=== PATIENT | female | born 1975 | race African-American/Black ===

== ENCOUNTER → 2024-03-28 | Outpatient (REF) | LOC: M LAB 13:40 | PROVIDERS: ATTEND Family Medicine | DX: Z01.89 Encounter for other specified special examinations (principal) ==

== ENCOUNTER 2024-06-27 22:10 | Emergency (ER) | payer BC ==
[~2024-06-27] VITALS: Ht 165.1 cm; Wt 100.8 kg
[2024-06-27 22:17] VITALS: BP 112/72; TEMP 99.1; O2SAT 97
== END 2024-06-28 01:52 | disposition left against medical advice (07) ==
LOC: M ED 22:10
DX: Z53.21 Procedure and treatment not carried out due to patient leaving prior to being seen by health care provider (principal)

== ENCOUNTER 2025-02-08 05:58 | Emergency (ER) | payer BC ==
[~2025-02-08] VITALS: Ht 162.6 cm; Wt 106.6 kg
[2025-02-08] MEDS: ACETAMINOPHEN 500 MG TAB PO ONE (06:44)
[2025-02-08 06:56] LABS: BASO % 0.6 % (0.0-1.0); EOS # 0.1 10^3/uL (0.0-0.5); EOS % 1.8 % (0.0-3.0); HEMATOCRIT 39.9 % (36.0-47.0); HEMOGLOBIN 13.5 g/dl (12.0-15.5); LYMPH # 4.2 10^3/uL (1.5-5.0); LYMPH % 58.3 % (24.0-44.0); MEAN CORPUSCULAR HEMOGLOBIN 30.5 pg (27.0-33.0); MEAN CORPUSCULAR HGB CONC 33.8 g/dl (32.0-36.5); MEAN CORPUSCULAR VOLUME 90.1 fl (80.0-96.0); MONO # 0.7 10^3/uL (0.0-0.8); MONO % 9.5 % (2.0-8.0); NEUTROPHILS # 2.1 10^3/uL (1.5-8.5); NEUTROPHILS % 29.7 % (36.0-66.0); PLATELET COUNT, AUTOMATED 375 10^3/uL (150-450); RED BLOOD COUNT 4.43 10^6/uL (4.00-5.40); WHITE BLOOD COUNT 7.2 10^3/uL (4.0-10.0)
[2025-02-08 07:18] LABS: BLOOD UREA NITROGEN 13 MG/DL (9-23); CALCIUM LEVEL 8.3 MG/DL (8.5-10.1); CARBON DIOXIDE LEVEL 24 MMOL/L (20-31); CHLORIDE LEVEL 106 MMOL/L (98-107); CREATININE FOR GFR 0.69 MG/DL (0.55-1.30); GLOMERULAR FILTRATION RATE > 90.0 (>51); GLUCOSE, FASTING 109 MG/DL (60-100); MAGNESIUM LEVEL 1.9 MG/DL (1.8-2.4); POTASSIUM SERUM 3.8 MMOL/L (3.5-5.1); SODIUM LEVEL 139 MMOL/L (136-145)
[2025-02-08 07:21] LABS: FREE T4 1.21 NG/DL (0.89-1.76); THYROID STIMULATING HORMONE 5.47 uIU/ML (0.55-4.78)
[2025-02-08 08:13] VITALS: BP 132/67; TEMP 98.2; O2SAT 97
[2025-02-08] MEDS ORDERED: HOLTER MONITOR XX (08:24)
[2025-02-08] MEDS ORDERED: METH-1164 PO (08:24)
[2025-02-08] MEDS: methocarbamoL 500 MG TAB PO ONE (08:43)
== END 2025-02-08 08:58 | disposition home or self-care (01) ==
LOC: M ED 05:58
DX: R00.2 Palpitations (principal); M47.816 Spondylosis without myelopathy or radiculopathy, lumbar region; R94.6 Abnormal results of thyroid function studies; Z79.899 Other long term (current) drug therapy

== ENCOUNTER → 2025-03-07 | Outpatient (CLI) | payer BC ==
[~2025-03-07] MED LIST: HOLTER MONITOR XX; METH-1164 PO
[2025-03-07 10:18] LABS: BASO # 0.1 10^3/uL (0.0-0.2); BASO % 0.9 % (0.0-1.0); EOS # 0.1 10^3/uL (0.0-0.5); EOS % 1.4 % (0.0-3.0); LYMPH # 4.0 10^3/uL (1.5-5.0); LYMPH % 57.5 % (24.0-44.0); MONO # 0.7 10^3/uL (0.0-0.8); MONO % 9.3 % (2.0-8.0); NEUTROPHILS # 2.2 10^3/uL (1.5-8.5); NEUTROPHILS % 30.8 % (36.0-66.0); PLATELET COUNT, AUTOMATED 373 10^3/uL (150-450)
[2025-03-07 10:24] LABS: ERYTHROCYTE SEDIMENTATION RATE 20 mm/hr (0-30)
[2025-03-07 10:47] LABS: C REACTIVE PROTEIN QUANTITATIV < 0.50 MG/DL (<1.0); RHEUMATOID FACTOR QUANT < 3.5 IU/ML (<14)
[2025-03-07 10:48] LABS: ALT/SGPT 28 U/L (7.0-40); AST/SGOT 23 U/L (<34); CALCIUM LEVEL 8.1 MG/DL (8.5-10.1); CARBON DIOXIDE LEVEL 24 MMOL/L (20-31); CHLORIDE LEVEL 103 MMOL/L (98-107); CHOLESTEROL LEVEL 180 MG/DL (<200); CHOLESTEROL RISK RATIO 5.29 (<5); CREATININE FOR GFR 0.77 MG/DL (0.55-1.30); GLOMERULAR FILTRATION RATE > 90.0 (>51); LDL CHOLESTEROL 89.0 MG/DL (<100); MAGNESIUM LEVEL 1.6 MG/DL (1.8-2.4); NON-HDL-C 146.0 MG/DL; POTASSIUM SERUM 4.0 MMOL/L (3.5-5.1); SODIUM LEVEL 138 MMOL/L (136-145); TRIGLYCERIDES LEVEL 285 MG/DL (<150)
[2025-03-07 10:52] LABS: FREE T4 1.18 NG/DL (0.89-1.76)
[2025-03-07 11:07] LABS: ESTIMATED AVERAGE GLUCOSE 120.0 MG/DL (60-110)
[2025-03-07 11:22] LABS: HIV 1&2 SCREEN NEGATIVE (NEGATIVE)
[2025-03-07 11:29] LABS: HEP C VIRUS AB INDEX SOURCE PT < 0.0 INDEX (0.0-0.8)
== END ==
LOC: M LAB 07:08
PROVIDERS: ATTEND Physician Assistant
DX: R00.2 Palpitations (principal); L03.011 Cellulitis of right finger; Z68.39 Body mass index [BMI] 39.0-39.9, adult

== ENCOUNTER → 2025-03-21 | Outpatient (CLI) | payer BC | LOC: M RAD 12:57 | PROVIDERS: ATTEND Physician Assistant | DX: M51.360 Other intervertebral disc degeneration, lumbar region with discogenic back pain only (principal); M51.27 Other intervertebral disc displacement, lumbosacral region ==

== ENCOUNTER 2025-05-06 16:27 | Emergency (ER) | payer BC ==
[~2025-05-06] VITALS: Ht 165.1 cm; Wt 108.4 kg
[2025-05-06] MEDS: KETOROLAC 30 MG/ML 1 ML VIAL IV ONE (21:07)
[2025-05-06] MEDS: METHOCARBAMOL 1,000 MG/10 ML VIAL IV ONE (21:07)
[2025-05-06] MEDS: ACETAMINOPHEN *IV* 1,000 MG in IV 1 EA IV ONE (21:58)
[2025-05-07] MEDS ORDERED: MEDR4PAK PO
[2025-05-07] MEDS ORDERED: METH-1165 PO
[2025-05-07 00:03] VITALS: BP 121/70; TEMP 98.6; O2SAT 99
== END 2025-05-07 00:13 | disposition home or self-care (01) ==
LOC: M ED 16:27
DX: M54.31 Sciatica, right side (principal); M54.50 Low back pain, unspecified; Z79.899 Other long term (current) drug therapy
CPT/HCPCS: 96374; 96375; 99285; J0131; J1100; J1885; J2800